=== PATIENT | male | born 1980 | race Caucasian/White ===

== ENCOUNTER 2018-09-23 12:49 | Emergency (ER) | payer MEDICAID, OTHER ==
[~2018-09-23] VITALS: Ht 172.7 cm; Wt 72.6 kg
[2018-09-23 13:00] VITALS: BP 149/100
[2018-09-23] MEDS ORDERED: KETOROLAC TROMETH 60MG/2ML VIAL IM ONE (15:00)
[2018-09-23] MEDS ORDERED: cefTRIAXone SOD 1,000 MG VL IM ONE (15:00)
[2018-09-23] MEDS ORDERED: HYDROcodone-ACET 7.5/325MG TAB PO ONE (15:15)
== END 2018-09-23 15:37 | disposition home or self-care (01) ==
LOC: ER 12:49
DX: S62.633A Displaced fracture of distal phalanx of left middle finger, initial encounter for closed fracture (principal); L03.012 Cellulitis of left finger; F17.210 Nicotine dependence, cigarettes, uncomplicated; W31.9XXA Contact with unspecified machinery, initial encounter; Y93.89 Activity, other specified; Y99.8 Other external cause status; Y92.89 Other specified places as the place of occurrence of the external cause
CPT/HCPCS: 10060; 73140; 96372; 99283; J0696; J1885